=== PATIENT | female | born 1980 | race Two or more races ===

== ENCOUNTER 2021-08-21 20:08 | Emergency (ER) | payer MEDICAID ==
[~2021-08-21] VITALS: Ht 165.1 cm; Wt 99.8 kg
--- NOTE | 2021-08-21 20:35 | NUR ---
Patient came in c/o left side facial swelling and pain that started yesterday. 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
--- NOTE | 2021-08-21 20:40 | NUR ---
AGNIESZKA HAJI at bedside for MSE.
[2021-08-21] MEDS ORDERED: ONDA4TAB5 PO (20:49)
[2021-08-21] MEDS ORDERED: HYDR-4209 PO (20:49)
[2021-08-21] MEDS ORDERED: PENICILLIN G BENZATHINE 2.4 MMU/4 ML DISP.SYRIN IM ONE ×2 (21:00→21:18)
[2021-08-21] MEDS ORDERED: HYDROCODONE/APAP 10-325 MG TABLET PO ONE (21:00)
[2021-08-21] MEDS ORDERED: ONDANSETRON ODT 4 MG TAB.RAPDIS SL ONE (21:00)
[2021-08-21] MEDS ORDERED: HYDROCODONE/APAP 10-325 MG TABLET ONE (21:16)
[2021-08-21] MEDS ORDERED: ONDANSETRON ODT 4 MG TAB.RAPDIS ONE (21:17)
--- NOTE | 2021-08-21 21:50 | NUR ---
Patient requested to go home. Informed ER MD. Per Dr Lepe ok to go home.
--- NOTE | 2021-08-21 22:00 | NUR ---
Patient discharged to home via private vehicle in stable condition, VSS, NAD. Able to ambulate in steady gait. Written and verbal after care instructions given. Patient verbalizes understanding of instructions. Stressed follow up or return to ER for worsening s/s.
[2021-08-21 22:16] VITALS: BP 140/90
== END 2021-08-21 22:00 | disposition home or self-care (01) ==
LOC: ER 20:14
DX: K02.9 Dental caries, unspecified (principal); R51.9 Headache, unspecified; J45.909 Unspecified asthma, uncomplicated; R03.0 Elevated blood-pressure reading, without diagnosis of hypertension
CPT/HCPCS: 96372; 99283; J0561; A4663; Q0162